=== PATIENT | female | born 1960 | race American Indian/Alaskan Native ===

== ENCOUNTER 2018-08-29 17:40 | Emergency (ER) | payer BC, OTHER ==
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
[2018-08-29] MEDS ORDERED: NORCO 5/325 PO ONE (21:39)
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
[2018-08-29 23:21] VITALS: BP 132/68
== END 2018-08-29 23:00 | disposition home or self-care (01) ==
LOC: ED 17:40
DX: S16.1XXA Strain of muscle, fascia and tendon at neck level, initial encounter (principal); S09.90XA Unspecified injury of head, initial encounter; I10 Essential (primary) hypertension; Z90.49 Acquired absence of other specified parts of digestive tract; Z90.710 Acquired absence of both cervix and uterus; Z87.891 Personal history of nicotine dependence; Z79.899 Other long term (current) drug therapy; V89.0XXA Person injured in unspecified motor-vehicle accident, nontraffic, initial encounter; Y93.89 Activity, other specified; Y92.410 Unspecified street and highway as the place of occurrence of the external cause; Y99.8 Other external cause status
CPT/HCPCS: 70450; 72040; 72125